=== PATIENT | female | born 1985 | race Two or more races ===

== ENCOUNTER 2016-10-10 | Emergency (ER) | payer MEDICAID | END 2016-10-11 03:18 | disposition home or self-care (01) ==

== ENCOUNTER 2016-10-14 | Emergency (ER) | payer MEDICAID | END 2016-10-14 16:22 | disposition home or self-care (01) ==

== ENCOUNTER 2017-01-24 15:20 | Emergency (ER) | payer MEDICAID | END 2017-01-24 16:09 | disposition home or self-care (01) | DX: G62.9 Polyneuropathy, unspecified (principal); M79.602 Pain in left arm; I10 Essential (primary) hypertension ==

== ENCOUNTER 2017-02-15 14:30 | Emergency (ER) | payer MEDICAID ==
[2017-02-15] MEDS ORDERED: NEOMYCIN/POLYMYX/DEXAMETH OPHTH DROPS 5 ML ONE (15:06)
[2017-02-15] MEDS ORDERED: NEOMYCIN/POLYMYX/DEXAMETH OPHTH OINT LEFTEYE STA (15:10)
[2017-02-15] MEDS ORDERED: NEOMYCIN/POLYMYX/DEXAMETH OPHTH DROPS 5 ML LEFTEYE SCH (17:00)
== END 2017-02-15 15:27 | disposition home or self-care (01) ==
DX: H00.015 Hordeolum externum left lower eyelid (principal); I10 Essential (primary) hypertension
CPT/HCPCS: 99283; A9270

== ENCOUNTER 2017-03-16 10:59 | Emergency (ER) | payer MEDICAID ==
[2017-03-16 11:04] VITALS: BP 128/91
[2017-03-16] MEDS ORDERED: MAG HYDROX/AL HYDROX/SIMETH 30 ML UDC PO STA (12:17)
[2017-03-16] MEDS ORDERED: LIDOCAINE VISCOUS 2% 15 ML UDC MM STA (12:17)
--- NOTE | 2017-03-16 12:20 | ED Physician Documentation ---
PD HPI ABD PAIN - Stated complaint Stated Complaint: LEFT SIDE PX - Chief complaint Chief Complaint: Abd Pain - History obtained from History obtained from: Patient - History of Present Illness Timing - onset: Yesterday (31-year-old woman with history of gastritis presents with left upper quadrant pain starting abruptly yesterday about an hour after starting diclofenac gel for chronic wrist and back pain. She is nauseous but has not vomited. She has had a subjective fever, but nothing measured. She also has diarrhea. She denies possibility of .) Review of Systems Constitutional: reports: Fever (subjective) Cardiac: denies: Chest pain / pressure, Palpitations Respiratory: denies: Dyspnea, Cough GI: reports: Abdominal Pain (nonradiating, left upper), Nausea, Vomiting, Diarrhea. 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 : None HEENT: None Psych: Depression, Anxiety Musculoskeletal: Other Derm: None - Past Surgical History Past Surgical History: Yes - Present Medications Home Medications: Ambulatory Orders Medication Instructions Recorded Confirmed Prazosin [Minipress] 1 tab PO DAILY 01/24/17 03/16/17 Diclofenac Sodium [Solaraze] 1 applic .ROUTE .FREQ 03/16/17 03/16/17 Omeprazole [PriLOSEC] 20 mg PO DAILY #14 capsule 03/16/17 traZODone [Desyrel] 1 tab PO DAILY 03/16/17 03/16/17 - Allergies Allergies/Adverse Reactions: Allergies Allergy/AdvReac Type Severity Reaction Status Date / Time aspirin Allergy Unknown Verified 03/16/17 11:04 - Social History Does the pt smoke?: No Smoking Status: Never smoker Does the pt drink ETOH?: No Does the pt have substance abuse?: No - Immunizations Immunizations are current?: Yes - POLST Patient has POLST: No PD ED PE NORMAL - Vitals Vital signs reviewed: Yes - General General: Alert and oriented X 3, No acute distress - Cardiac Cardiac: RRR, No murmur - Respiratory Respiratory: No respiratory distress, Clear bilaterally - Abdomen Abdomen: Normal bowel sounds, Soft, Non tender - Neuro Neuro: Alert and oriented X 3, Normal speech - Psych Psych: Normal mood, Normal affect Results - Vitals Vitals: Vital Signs - 24 hr 03/16/17 11:02 Temperature 36.0 C L Heart Rate 74 Respiratory 18 Rate Blood Pressure 128/91 H O2 Saturation 99 Oxygen O2 Source Room air - Labs Labs: Laboratory Tests 03/16/17 03/16/17 03/16/17 12:20 12:20 12:25 WBC 10.1 RBC 5.28 Hgb 14.8 Hct 42.5 MCV 80.5 L MCH 27.9 MCHC 34.7 RDW 12.9 Plt Count 276 MPV 8.2 Neut # 6.0 Lymph # 3.5 [place] # 0.6 Eos # 0.1 Baso # 0.0 Absolute Nucleated RBC 0.01 Nucleated RBCs 0.1 Sodium 137 Potassium 3.5 Chloride 99 L Carbon Dioxide 28 Anion Gap 10.0 BUN 5 L Creatinine 0.5 Estimated GFR (MDRD) 146 Glucose 271 H Calcium 9.8 Total Bilirubin 0.8 AST 45 H ALT 89 H Alkaline Phosphatase 71 Total Protein 7.9 Albumin 4.4 Globulin 3.5 Albumin/Globulin Ratio 1.3 Lipase 25 Urine Color YELLOW Urine Clarity CLEAR Urine pH 6.0 Ur Specific [place] 1.015 Urine Protein NEGATIVE Urine Glucose (UA) >=1000 H Urine Ketones TRACE Urine Occult Blood NEGATIVE Urine Nitrite NEGATIVE Urine Bilirubin NEGATIVE Urine Urobilinogen 0.2 (NORMAL) Ur Leukocyte Esterase NEGATIVE Ur Microscopic Review NOT INDICATED Urine Culture Comments NOT INDICATED Urine HCG, Qual NEGATIVE PD MEDICAL DECISION MAKING - ED course ED course: LUQ pain after using diclofenac, non radiating, time course seems awfully fast for gastritis (1hr after starting the NSAID) but did have relief with GI cocktail. Labs show chronic elevation of liver enzymes. Spoke with her physician Dr Aguilar by phone ([phone]), agrees with starting Prilosec and asked us not to give opiates from the emergency department. She will followup on lab abnormalities. Departure - Departure Disposition: 01 Home, Self Care Clinical Impression: Gastritis Qualifiers: Gastritis type: unspecified gastritis Chronicity: acute Gastritis bleeding: without bleeding Qualified Code(s): K29.00 - Acute gastritis without bleeding Condition: Good Record reviewed to determine appropriate education?: Yes Instructions: ED Gastritis Prescriptions: Omeprazole [PriLOSEC] 20 mg PO DAILY #14 capsule Comments: YOU DO HAVE CHRONICALLY (NOT RELATED TO NEW MED-ON OLD LABS) ELEVATED LIVER ENZYMES AND BLOOD SUGAR, DR AGUILAR IS AWARE AND WILL LOOK INTO IT AT FOLLOWUP. RETURN IF WORSE STOP DICLOFENAC. Your blood pressure was elevated today on check in to the emergency department. This does not mean that you have hypertension, it is a common phenomenon to check into the emergency department and have elevated blood pressure. I recommend that you see your primary care physician within the week to have it rechecked when you're feeling better.
[2017-03-16] MEDS ORDERED: MAG HYDROX/AL HYDROX/SIMETH 30 ML UDC ONE (12:27)
[2017-03-16] MEDS ORDERED: LIDOCAINE VISCOUS 2% 15 ML UDC MM ONE (12:27)
[2017-03-16 12:32] LABS: BILIRUBIN,URINE NEGATIVE (NEGATIVE)
[2017-03-16 12:34] LABS: HCG UR QUAL NEGATIVE; UA CHARGE (STRIP ONLY) YES; UR CULTURE IF IND NOT INDICATED
[2017-03-16 12:38] LABS: BASOPHILS % (AUTO) 0.4 %; EOSINOPHILS # (AUTO) 0.1 10^3/uL (0.0-0.7); EOSINOPHILS % (AUTO) 0.8 %; HCT - HEMATOCRIT 42.5 % (37.0-47.0); HGB - HEMOGLOBIN 14.8 g/dL (12.0-16.0); LYMPHOCYTES # (AUTO) 3.5 10^3/uL (1.5-3.5); LYMPHOCYTES % (AUTO) 34.4 %; MEAN CORPUSCULAR HEMOGLOBIN 27.9 pg (27.0-31.0); MEAN CORPUSCULAR HGB CONC 34.7 g/dL (32.0-36.0); MEAN CORPUSCULAR VOLUME 80.5 fL (81.0-99.0); MEAN PLATELET VOLUME 8.2 fL (7.9-10.8); MONOCYTES # (AUTO) 0.6 10^3/uL (0.0-1.0); MONOCYTES % (AUTO) 5.4 %; NUCLEATED RED BLOOD CELLS AUTO 0.1 /100WBC; RED BLOOD COUNT 5.28 10^6/uL (4.20-5.40); RED CELL DISTRIBUTION WIDTH 12.9 % (12.0-15.0); UNCORRECTED WHITE BLOOD COUNT 10.1 x10^3/uL; WHITE BLOOD COUNT 10.1 x10^3/uL (4.8-10.8)
[2017-03-16 12:51] LABS: ALBUMIN/GLOBULIN RATIO 1.3 (1.0-2.2); BILIRUBIN,TOTAL 0.8 mg/dL (0.2-1.0); CALCIUM 9.8 mg/dL (8.5-10.3); CREATININE 0.5 mg/dL (0.4-1.0); POTASSIUM 3.5 mmol/L (3.5-5.0); TOTAL PROTEIN 7.9 g/dL (6.7-8.2)
== END 2017-03-16 13:07 | disposition home or self-care (01) ==
LOC: ED 10:59
DX: K29.00 Acute gastritis without bleeding (principal); I10 Essential (primary) hypertension; J45.909 Unspecified asthma, uncomplicated; K21.9 Gastro-esophageal reflux disease without esophagitis
CPT/HCPCS: 36415; 80053; 81003; 81025; 83690; 85025; 99283; 99284; A9270; 81001; 87086

== ENCOUNTER 2017-03-29 10:00 | Emergency (ER) | payer MEDICAID ==
[2017-03-29] MEDS ORDERED: MAG HYDROX/AL HYDROX/SIMETH 30 ML UDC PO STA (12:15)
[2017-03-29] MEDS ORDERED: LIDOCAINE VISCOUS 2% 15 ML UDC MM STA (12:15)
[2017-03-29] MEDS ORDERED: LIDOCAINE VISCOUS 2% 15 ML UDC MM ONE (12:33)
[2017-03-29] MEDS ORDERED: MAG HYDROX/AL HYDROX/SIMETH 30 ML UDC ONE (12:33)
[2017-03-29] MEDS ORDERED: ACETAMINOPHEN 325 MG TABLET PO STA (12:45)
[2017-03-29] MEDS ORDERED: ACETAMINOPHEN 325 MG TABLET PO ONE (12:54)
== END 2017-03-29 13:39 | disposition home or self-care (01) ==
DX: K29.01 Acute gastritis with bleeding (principal); N30.00 Acute cystitis without hematuria; I10 Essential (primary) hypertension; K21.9 Gastro-esophageal reflux disease without esophagitis; J45.909 Unspecified asthma, uncomplicated
CPT/HCPCS: 81001; 81025; 85014; 85018; 99283; A9270

== ENCOUNTER 2017-05-11 07:57 | Emergency (ER) | payer MEDICAID ==
[2017-05-11 08:07] VITALS: BP 133/80
[2017-05-11] MEDS ORDERED: DEXAMETHASONE 10 MG/ML VIAL IM STA (08:38)
--- NOTE | 2017-05-11 08:41 | ED Physician Documentation ---
PD HPI HEENT - Stated complaint Stated Complaint: VOMITING BLOOD - Chief complaint Chief Complaint: Resp - History obtained from History obtained from: Patient - History of Present Illness Timing - onset: How many weeks ago (1) Timing - duration: Weeks (1) Timing - details: Gradual onset, Still present Location: Right ear, Left ear, Sinuses Associated symptoms: Congestion, Rhinorrhea, Cough Similar symptoms before: Diagnosis (sinusitis) Recently seen: Emergency Dept (last month for) - Additional information Additional information: 31-year-old female with a cough productive of sputum for the past week has developed blood-tinged sputum and she has coughed up a fair amount of this. She is not short of breath. She has developed some diarrhea over the past 72 hours. She complains of ear pain and sinus congestion and she has started to take an [id number] cough syrup without much relief. She has been taking some ibuprofen last dose 3 days ago. Review of Systems Constitutional: reports: Fatigue. denies: Fever Eyes: denies: Decreased vision Ears: reports: Ear pain Nose: reports: Rhinorrhea / runny nose, Congestion, Sinus pressure / pain Throat: denies: Sore throat Cardiac: denies: Chest pain / pressure, Palpitations Respiratory: reports: Cough. denies: Dyspnea GI: reports: Diarrhea. 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 : None HEENT: None Psych: Depression, Anxiety Musculoskeletal: Other Derm: None - Past Surgical History Past Surgical History: Yes - Present Medications Home Medications: Ambulatory Orders Medication Instructions Recorded Confirmed Prazosin [Minipress] 1 tab PO DAILY 01/24/17 05/11/17 traZODone [Desyrel] 1 tab PO DAILY 03/16/17 05/11/17 Omeprazole [PriLOSEC] 20 mg PO DAILY #14 capsule 03/29/17 05/11/17 Sucralfate 1 gm PO ACHS #40 tablet 03/29/17 05/11/17 Azithromycin [Zithromax] 250 mg PO DAILY #6 tablet 05/11/17 - Allergies Allergies/Adverse Reactions: Allergies Allergy/AdvReac Type Severity Reaction Status Date / Time aspirin Allergy Unknown Verified 05/11/17 08:07 - Social History Does the pt smoke?: No Smoking Status: Never smoker Does the pt drink ETOH?: No Does the pt have substance abuse?: No - Immunizations Immunizations are current?: Yes - POLST Patient has POLST: No PD ED PE NORMAL - Vitals Vital signs reviewed: Yes (Hypertensive) - General General: Alert and oriented X 3, Well developed/nourished - HEENT HEENT: Atraumatic, PERRL, EOMI, Other (Both TMs are mildly inflamed) - Neck Neck: Supple, no meningeal sign, No bony TTP - Cardiac Cardiac: RRR, No murmur - Respiratory Respiratory: No respiratory distress, Clear bilaterally - Abdomen Abdomen: Soft, Other (Mild left upper quadrant tenderness) - Back Back: No CVA TTP, No spinal TTP - Derm Derm: Normal color, Warm and dry, No rash - Extremities Extremities: No deformity, No edema - Neuro Neuro: Alert and oriented X 3, No motor deficit, No sensory deficit, Normal speech - Psych Psych: Normal mood, Normal affect Results - Vitals Vitals: Vital Signs - 24 hr 05/11/17 08:04 Temperature 36.6 C Heart Rate 85 Respiratory 16 Rate Blood Pressure 133/80 H O2 Saturation 100 Oxygen O2 Source Room air PD MEDICAL DECISION MAKING - ED course Complexity details: reviewed old records, considered differential, d/w patient ED course: 31-year-old homeless female who is a poor historian has developed a cough and congestion and is coughing up some blood-tinged sputum. On examination she has bilateral otitis and here in the emergency department she is administered dexamethasone 10 mg IM to avoid irritation of the GI system and we will place her on some antibiotic. Departure - Departure Disposition: 01 Home, Self Care Clinical Impression: Otitis media Qualifiers: Otitis media type: suppurative Laterality: bilateral Chronicity: acute Recurrence: not specified as recurrent Spontaneous tympanic membrane rupture: without spontaneous rupture Qualified Code(s): H66.003 - Acute suppurative otitis media without spontaneous rupture of ear drum, bilateral Condition: Stable Instructions: ED Otitis Media Acute Adult Follow-Up: [facility] [Provider Group] Prescriptions: Azithromycin [Zithromax] 250 mg PO DAILY #6 tablet
[2017-05-11] MEDS ORDERED: DEXAMETHASONE 10 MG/ML VIAL ONE (08:47)
== END 2017-05-11 08:53 | disposition home or self-care (01) ==
LOC: ED 07:57
DX: H66.003 Acute suppurative otitis media without spontaneous rupture of ear drum, bilateral (principal); I10 Essential (primary) hypertension
CPT/HCPCS: 96372; 99283

== ENCOUNTER 2017-07-06 22:10 | Emergency (ER) | payer MEDICAID ==
--- NOTE | 2017-07-06 22:24 | ED Physician Documentation ---
PD HPI UPPER EXT INJURY - Stated complaint Stated Complaint: LT FINGER INJ - History obtained from History obtained from: Patient - History of Present Illness Location: Other (She smashed her left ring finger on a ladder about a week ago and now has a recurrent paronychia that she is drained a few times with a needle but it keeps recurring.) Review of Systems Constitutional: reports: Reviewed and negative Throat: reports: Reviewed and negative Cardiac: reports: Reviewed and negative PD PAST MEDICAL HISTORY - Past Medical History Cardiovascular: Hypertension Respiratory: Asthma Neuro: None Endocrine/Autoimmune: None 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 : None HEENT: None Psych: Depression, Anxiety Musculoskeletal: Other Derm: None - Past Surgical History Past Surgical History: Yes - Present Medications Home Medications: Ambulatory Orders Medication Instructions Recorded Confirmed Prazosin [Minipress] 1 tab PO DAILY 01/24/17 05/11/17 traZODone [Desyrel] 1 tab PO DAILY 03/16/17 05/11/17 Omeprazole [PriLOSEC] 20 mg PO DAILY #14 capsule 03/29/17 05/11/17 Sucralfate 1 gm PO ACHS #40 tablet 03/29/17 05/11/17 Azithromycin [Zithromax] 250 mg PO DAILY #6 tablet 05/11/17 Amox/Clav 875/125 [Augmentin] 1 each PO Q12H #14 tablet 07/06/17 - Allergies Allergies/Adverse Reactions: Allergies Allergy/AdvReac Type Severity Reaction Status Date / Time aspirin Allergy Unknown Verified 05/11/17 08:07 - Social History Does the pt smoke?: No Smoking Status: Never smoker Does the pt drink ETOH?: No Does the pt have substance abuse?: No - Immunizations Immunizations are current?: Yes - POLST Patient has POLST: No PD ED PE NORMAL - Vitals Vital signs reviewed: Yes - General General: Alert and oriented X 3, No acute distress - Extremities Extremities: Other (No tenderness of the pulp of the left ring finger but she does have a circumferential paronychia.) - Neuro Neuro: Alert and oriented X 3, Normal speech Results - Vitals Vitals: Vital Signs - 24 hr 07/06/17 22:24 Temperature 36.7 C Heart Rate 100 Respiratory 18 Rate Blood Pressure 136/94 H O2 Saturation 99 Oxygen O2 Source Room air Procedures - General procedure General procedure: After informed verbal consent and a digital block with buffered lidocaine the paronychia was incised over the nail plate with a scalpel and copious pus returned. Departure - Departure Disposition: 01 Home, Self Care Clinical Impression: Paronychia of finger of left hand Condition: Good Record reviewed to determine appropriate education?: Yes Instructions: ED Fingernail Infec Prescriptions: Amox/Clav 875/125 [Augmentin] 1 each PO Q12H #14 tablet Comments: You can wash it briefly with soap and water and keep it covered with a Band- Aid. Recheck with your physician in 1 week. Your blood pressure was elevated today on check into the emergency department. This does not mean that you have hypertension, it is a common phenomenon to come to the emergency department and have elevated blood pressure. I recommend that she see your primary care physician within the week to have it rechecked when you are feeling better.
[2017-07-06 22:28] VITALS: BP 136/94
[2017-07-06] MEDS ORDERED: AMOX/CLAV 875 MG/125 MG TABLET PO STA (22:28)
[2017-07-06] MEDS ORDERED: BUFFERED LIDOCAINE 10 ML SYRINGE ONE (22:29)
[2017-07-06] MEDS ORDERED: AMOX/CLAV 875 MG/125 MG TABLET PO ONE (22:38)
[2017-07-06] MEDS ORDERED: HYDROcod/ACET 5/325 Prepack 6 PO STA (22:59)
[2017-07-06] MEDS ORDERED: HYDROcod/ACET 5/325 Prepack 6 PO ONE (23:04)
== END 2017-07-06 23:08 | disposition home or self-care (01) ==
LOC: ED 22:10
DX: S67.195A Crushing injury of left ring finger, initial encounter (principal); L03.012 Cellulitis of left finger; W23.1XXA Caught, crushed, jammed, or pinched between stationary objects, initial encounter; I10 Essential (primary) hypertension; J45.909 Unspecified asthma, uncomplicated; K21.9 Gastro-esophageal reflux disease without esophagitis
CPT/HCPCS: 10060; 99283; A9270

== ENCOUNTER 2017-08-27 07:54 | Emergency (ER) | payer MEDICAID ==
[2017-08-27 08:01] VITALS: BP 125/85
[2017-08-27] MEDS ORDERED: DEXAMETHASONE 10 MG/ML VIAL PO STA (08:56)
[2017-08-27] MEDS ORDERED: LIDOCAINE PATCH 5% TOP STA (08:56)
--- NOTE | 2017-08-27 08:59 | ED Physician Documentation ---
History of Present Illness - Stated complaint Stated Complaint: NECK PX - Chief complaint Chief Complaint: General - Additonal information Additional information: hx from pt 32 f [facility]th [facility] ER visit in 2 years states knocked over at a medical facility 2 weeks ago no head injury no nck pain initially states was checked by staff at the time now has neck pain jarek and midline and pain down R arm no weakness or numbness no leg sx denies preg has tried ibuprofen Review of Systems : denies: Now EGA Musculoskeletal: reports: Neck pain, Extremity pain Neurologic: denies: Focal weakness, Numbness PD PAST MEDICAL HISTORY - Past Medical History Cardiovascular: Hypertension Respiratory: Asthma Neuro: None Endocrine/Autoimmune: None 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 HEENT: None Psych: Depression, Anxiety Musculoskeletal: Other Derm: None - Past Surgical History Past Surgical History: Yes - Present Medications Home Medications: Ambulatory Orders Medication Instructions Recorded Confirmed Prazosin [Minipress] 1 tab PO DAILY 01/24/17 05/11/17 traZODone [Desyrel] 1 tab PO DAILY 03/16/17 05/11/17 Omeprazole [PriLOSEC] 20 mg PO DAILY #14 capsule 03/29/17 05/11/17 Sucralfate 1 gm PO ACHS #40 tablet 03/29/17 05/11/17 Azithromycin [Zithromax] 250 mg PO DAILY #6 tablet 05/11/17 Amox/Clav 875/125 [Augmentin] 1 each PO Q12H #14 tablet 07/06/17 Cyclobenzaprine [Flexeril] 10 mg PO TID PRN #20 tablet 08/27/17 Lidocaine Patch 5% [Lidoderm Patch] 1 each TOP DAILY PRN #10 patch 08/27/17 predniSONE [Deltasone] 20 mg PO [id number] #21 tab 08/27/17 - Allergies Allergies/Adverse Reactions: Allergies Allergy/AdvReac Type Severity Reaction Status Date / Time aspirin Allergy Unknown Verified 05/11/17 08:07 lavender (Lavandula Allergy Hives Verified 08/27/17 08:01 angustifolia) - Social History Does the pt smoke?: No Smoking Status: Never smoker Does the pt drink ETOH?: No Does the pt have substance abuse?: No - Immunizations Immunizations are current?: Yes - POLST Patient has POLST: No PD ED PE NORMAL - Vitals Vital signs reviewed: Yes - HEENT HEENT: Atraumatic - Neck Neck: Other (diffuse midline and jarek soft tissue TTP limited ROM) - Cardiac Cardiac: RRR - Respiratory Respiratory: No respiratory distress, Clear bilaterally - Abdomen Abdomen: Non tender - Neuro Neuro: Alert and oriented X 3, No motor deficit, No sensory deficit, Other ( 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, pain with ROM shoulder and elbow, + cap refill) Results - Vitals Vitals: Vital Signs - 24 hr 08/27/17 07:58 Temperature 36.2 C L Heart Rate 79 Respiratory 16 Rate Blood Pressure 125/85 H O2 Saturation 100 Oxygen O2 Source Room air - Rads (name of study) Cspine Radiology: See rad report (neg) Departure - Departure Disposition: 01 Home, Self Care Clinical Impression: Cervical radiculopathy Neck sprain Qualifiers: Encounter type: initial encounter Qualified Code(s): S13.9XXA - Sprain of joints and ligaments of unspecified parts of neck, initial encounter Condition: Good Instructions: ED Cervical Radiculopathy, ED Neck Back Pain General Prescriptions: Cyclobenzaprine [Flexeril] 10 mg PO TID PRN #20 tablet PRN Reason: Spasms Lidocaine Patch 5% [Lidoderm Patch] 1 each TOP DAILY PRN #10 patch PRN Reason: Pain predniSONE [Deltasone] 20 mg PO [id number] #21 tab Comments: The xray was fine The pain seems to be from the muscles in your neck and perhaps a poinched nerve causing the arm pain I have prescribed medications to helpo please follow up with your PMD if not better in a week
[2017-08-27] MEDS ORDERED: DEXAMETHASONE 10 MG/ML VIAL ONE (09:24)
[2017-08-27] MEDS ORDERED: LIDOCAINE PATCH 5% TOP ONE (09:24)
--- NOTE | 2017-08-27 09:48 | XRAY Preliminary Report ---
Exam: XR CERVICAL SPINE 2 VIEW IMPRESSION: No cervical spine fracture or listhesis. [facility] SITE ID: [id number]
--- NOTE | 2017-08-27 09:51 | XRAY Report ---
EXAM: CERVICAL SPINE RADIOGRAPHY EXAM DATE: 08/27/2017 09:24 AM. CLINICAL HISTORY: Fall 2 week ago, continued neck pain. COMPARISONS: None. TECHNIQUE: 3 views. FINDINGS: Alignment: Normal. Bones: The cervical vertebral bodies and posterior elements are well visualized from the skull base t hrough C7-T1. No fractures or bone lesions. Disks: Normal. Disk heights are maintained. Facets: No degenerative disease. Soft Tissues: Normal. No prevertebral soft tissue swelling. The visualized lung apices are clear. IMPRESSION: No cervical spine fracture or listhesis. [facility] Referring Provider Line: [phone] SITE ID: [id number]
== END 2017-08-27 10:06 | disposition home or self-care (01) ==
LOC: ED 07:54
DX: S13.9XXA Sprain of joints and ligaments of unspecified parts of neck, initial encounter (principal); W18.39XA Other fall on same level, initial encounter; Y92.89 Other specified places as the place of occurrence of the external cause; M54.12 Radiculopathy, cervical region; I10 Essential (primary) hypertension; J45.909 Unspecified asthma, uncomplicated
CPT/HCPCS: 72040; 99283; A9270

== ENCOUNTER 2017-09-16 18:38 | Emergency (ER) | payer MEDICAID ==
--- NOTE | 2017-09-16 19:01 | ED Physician Documentation ---
PD HPI UPPER EXT INJURY - Stated complaint Stated Complaint: RT HAND IS BLUE & HAS PX - Chief complaint Chief Complaint: Ext Problem - History obtained from History obtained from: Patient - History of Present Illness Location: Right, Hand (she has had pain in right shoulder for 1-2 months after fall injury. Some neck pain as well. She is noting her right hand turn blue and feel cold intermittently the past few days. Notes it to lasta bout 20 minutes then improves. 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 : None HEENT: None Psych: Depression, Anxiety Musculoskeletal: Other Derm: None - Past Surgical History Past Surgical History: Yes - Present Medications Home Medications: Ambulatory Orders Medication Instructions Recorded Confirmed Prazosin [Minipress] 1 tab PO DAILY 01/24/17 09/16/17 traZODone [Desyrel] 1 tab PO DAILY 03/16/17 09/16/17 Cyclobenzaprine [Flexeril] 10 mg PO TID PRN #20 tablet 08/27/17 09/16/17 Dexamethasone [Decadron] 4 mg PO DAILY #5 tablet 09/16/17 HYDROcod/ACETAM 5/325 [[place] 5/325] 1 tab PO Q6H PRN #15 tablet 09/16/17 Methocarbamol [Robaxin] 500 mg PO Q6H PRN #25 tablet 09/16/17 Naproxen 375 mg PO BID #20 tablet 09/16/17 - Allergies Allergies/Adverse Reactions: Allergies Allergy/AdvReac Type Severity Reaction Status Date / Time aspirin Allergy Unknown Verified 09/16/17 18:49 lavender (Lavandula Allergy Hives Verified 09/16/17 18:49 angustifolia) - Social History Does the pt smoke?: No Smoking Status: Never smoker Does the pt drink ETOH?: No Does the pt have substance abuse?: No - Immunizations Immunizations are current?: Yes - POLST Patient has POLST: No PD ED PE NORMAL - Vitals Vital signs reviewed: Yes - General General: Alert and oriented X 3, No acute distress, Well developed/nourished - Neck Neck: Supple, no meningeal sign, No bony TTP, No adenopathy, Other (some tenderness right lateral neck muscles and suprascapular area. Tender at lateral shoulder. No rash. Right hand with normal color and cap refill. Good pulses at wrist. ) - Cardiac Cardiac: RRR, No murmur - Derm Derm: Normal color, Warm and dry, No rash - Neuro Neuro: Alert and oriented X 3, No motor deficit, No sensory deficit, Normal speech Results - Vitals Vitals: Vital Signs - 24 hr 09/16/17 09/16/17 18:45 20:35 Temperature 36.7 C Heart Rate 92 78 Respiratory 16 18 Rate Blood Pressure 129/89 H 132/94 H O2 Saturation 99 100 Oxygen O2 Source Room air - Rads (name of study) arterial U/S Radiology: Prelim report reviewed (no occlusions) PD MEDICAL DECISION MAKING - ED course Complexity details: considered differential, d/w patient Departure - Departure Disposition: 01 Home, Self Care Clinical Impression: Shoulder pain Qualifiers: Chronicity: acute Laterality: right Qualified Code(s): M25.511 - Pain in right shoulder Raynaud phenomenon Qualifiers: Raynaud?s-associated gangrene presence: without gangrene Qualified Code(s): I73.00 - Raynaud's syndrome without gangrene Condition: Stable Record reviewed to determine appropriate education?: Yes Instructions: ED Sprain Shoulder Follow-Up: Sher Gillis MD [Provider Admit Priv/Credential] - Prescriptions: Dexamethasone [Decadron] 4 mg PO DAILY #5 tablet HYDROcod/ACETAM 5/325 [[place] 5/325] 1 tab PO Q6H PRN #15 tablet PRN Reason: Pain Methocarbamol [Robaxin] 500 mg PO Q6H PRN #25 tablet PRN Reason: Spasms Naproxen 375 mg PO BID #20 tablet Comments: Sling for the shoulder with gentle range of motion several times a day. Use naproxen twice daily for the next week or so for inflammation and pain. Dexamethasone is a different type of anti-inflammatory to take daily for the next 5 days as well. For muscle spasms or stiffness use methocarbamol. For worse pain add Tylenol or hydrocodone if needed. Follow-up with orthopedics in about a week, call for an appointment. Recheck if worsening. Discharge Date/Time: 09/16/17 21:36
[2017-09-16] MEDS ORDERED: IBUPROFEN 600 MG TABLET PO STA (19:18)
--- NOTE | 2017-09-16 19:50 | XRAY Preliminary Report ---
Exam: XR SHOULDER 3 VIEW RT IMPRESSION: Normal shoulder radiography. [facility] SITE ID: [id number]
--- NOTE | 2017-09-16 19:53 | XRAY Report ---
EXAM: RIGHT SHOULDER RADIOGRAPHY EXAM DATE: 09/16/2017 07:39 PM. CLINICAL HISTORY: Injury with right shoulder pain. COMPARISON: None. TECHNIQUE: 3 views. FINDINGS: Bones: Normal. No fracture or bone lesion. Joints: The glenohumeral and acromioclavicular joints are normal. Soft tissues: The visualized hemithorax is unremarkable. No soft tissue swelling. IMPRESSION: Normal shoulder radiography. [facility] Referring Provider Line: [phone] SITE ID: [id number]
[2017-09-16 20:36] VITALS: BP 132/94
--- NOTE | 2017-09-16 20:54 | Ultrasound Preliminary Report ---
Exam: US DUPLEX UPR EXT ARTERIAL RT IMPRESSION: No sign of stenosis or occlusion. [facility] SITE ID: [id number]
--- NOTE | 2017-09-16 21:06 | Ultrasound Report ---
EXAM: RIGHT UPPER EXTREMITY ARTERIAL DOPPLER ULTRASOUND EXAM DATE: 09/16/2017 08:41 PM. CLINICAL HISTORY: Right hand intermittently blue after fall/injury. COMPARISON: None. TECHNIQUE: Real-time sonographic vascular imaging was performed by the turnstile collector, utilizing color-f low, Doppler flow, and spectral analysis. Multiple bottling equipment sales representative static images were saved for review . FINDINGS: Right Upper Extremity Velocities: Subclavian: Proximal 98 cm/sec, triphasic waveform. Subclavian: Distal 77 cm/sec, triphasic waveform Axillary: Proximal 86.3 cm/sec, Biphasic waveform. Brachial: Proximal 62.7 cm/sec, biphasic waveform. Brachial: Distal 82 cm/sec, biphasic waveform. Radial artery: Proximal 43.4 cm/sec, biphasic waveform. Ulnar artery: Proximal 81 cm/sec, triphasic waveform. IMPRESSION: No sign of stenosis or occlusion. [facility] Referring Provider Line: [phone] SITE ID: [id number]
[2017-09-16] MEDS ORDERED: HYDROcod/ACETAM 5/325 MG TABLET PO STA (21:23)
[2017-09-16] MEDS ORDERED: DEXAMETHASONE 10 MG/ML VIAL PO STA (21:23)
[2017-09-16] MEDS ORDERED: CHERRY SYRUP 10 ML UDC PO ONE (21:33)
== END 2017-09-16 21:36 | disposition home or self-care (01) ==
LOC: ED 18:38
DX: M25.511 Pain in right shoulder (principal); I73.00 Raynaud's syndrome without gangrene; I10 Essential (primary) hypertension; J45.909 Unspecified asthma, uncomplicated; K21.9 Gastro-esophageal reflux disease without esophagitis
CPT/HCPCS: 73030; 93931; 99283; A9270

== ENCOUNTER 2018-01-20 07:49 | Emergency (ER) | payer MEDICAID ==
[2018-01-20 07:56] VITALS: BP 128/85
--- NOTE | 2018-01-20 08:16 | ED Physician Documentation ---
PD HPI URI - Stated complaint Stated Complaint: CONGESTION - Chief complaint Chief Complaint: Resp - History obtained from History obtained from: Patient - History of Present Illness Timing - onset: How many days ago (few) Timing duration: Days (few) Timing details: Abrupt onset, Still present, Waxing and waning Associated symptoms: Fever, Nasal congestion, Sore throat, Dry cough. No: NVD, Bilateral edema Contributing factors: No: Sick contact, Travel, Immunocompromised Similar symptoms before: Has not had sx before Recently seen: Not recently seen Review of Systems Constitutional: reports: Fever, Chills, Myalgias, Fatigue Nose: reports: Rhinorrhea / runny nose, Congestion Throat: reports: Sore throat Cardiac: reports: Chest pain / pressure (with coughing). denies: Palpitations Respiratory: reports: Cough. 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 : None HEENT: None Psych: Depression, Anxiety Musculoskeletal: Other Derm: None - Past Surgical History Past Surgical History: Yes Ortho: Carpal Tunnel surgery - Present Medications Home Medications: Ambulatory Orders Medication Instructions Recorded Confirmed Prazosin [Minipress] 1 tab PO DAILY 01/24/17 09/16/17 traZODone [Desyrel] 1 tab PO DAILY 03/16/17 09/16/17 HYDROcod/ACETAM 5/325 [[place] 5/325] 1 tab PO Q6H PRN #15 tablet 09/16/17 Benzonatate [Tessalon] 100 mg PO TID PRN #25 capsule 01/20/18 Cetirizine [ZyrTEC] 10 mg PO DAILY #20 tablet 01/20/18 Dexamethasone [Decadron] 4 mg PO DAILY #5 tablet 01/20/18 guaiFENesin/CODEINE [Robitussin AC] 10 ml PO Q6H PRN #240 ml 01/20/18 - Allergies Allergies/Adverse Reactions: Allergies Allergy/AdvReac Type Severity Reaction Status Date / Time aspirin Allergy Unknown Verified 01/20/18 07:56 lavender (Lavandula Allergy Hives Verified 01/20/18 07:56 angustifolia) - Social History Does the pt smoke?: No Smoking Status: Never smoker Does the pt drink ETOH?: No Does the pt have substance abuse?: No - Immunizations Immunizations are current?: Yes - POLST Patient has POLST: No PD ED PE NORMAL - Vitals Vital signs reviewed: Yes - General General: Alert and oriented X 3, No acute distress, Well developed/nourished - HEENT HEENT: Ears normal, Moist mucous membranes, Pharynx benign - Neck Neck: Supple, no meningeal sign, No adenopathy - Cardiac Cardiac: RRR, No murmur - Respiratory Respiratory: Clear bilaterally - Back Back: No CVA TTP - Derm Derm: Normal color, Warm and dry, No rash - Extremities Extremities: No tenderness to palpate, Normal ROM s pain, No edema, No calf tenderness / cord - Neuro Neuro: Alert and oriented X 3, No motor deficit, Normal speech Results - Vitals Vitals: Vital Signs - 24 hr 01/20/18 07:52 Temperature 36.5 C Heart Rate 86 Respiratory 18 Rate Blood Pressure 128/85 H O2 Saturation 100 Oxygen O2 Source Room air PD MEDICAL DECISION MAKING - ED course Complexity details: considered differential (seems like viral URI), d/w patient Departure - Departure Disposition: 01 Home, Self Care Clinical Impression: Upper respiratory infection Qualifiers: URI type: unspecified URI Qualified Code(s): J06.9 - Acute upper respiratory infection, unspecified Condition: Stable Record reviewed to determine appropriate education?: Yes Instructions: ED Upper Resp Infec No Abx Tx Prescriptions: Benzonatate [Tessalon] 100 mg PO TID PRN #25 capsule PRN Reason: Cough Cetirizine [ZyrTEC] 10 mg PO DAILY #20 tablet Dexamethasone [Decadron] 4 mg PO DAILY #5 tablet guaiFENesin/CODEINE [Robitussin AC] 10 ml PO Q6H PRN #240 ml PRN Reason: Cough Comments: Drink lots of fluids. Tylenol or ibuprofen if needed for pains and fevers. Use the Decadron and cetirizine for inflammation and congestion daily as directed. Add Tessalon if needed for cough and Robitussin-AC cough medicine if needed for worse cough. Recheck if not improving over the next few days. These are typically viral infections and antibiotics will not really help. Should improve however over the next several days though the cough itself may persist to some degree for a couple more weeks. Discharge Date/Time: 01/20/18 08:51
[2018-01-20] MEDS ORDERED: BENZONATATE 100 MG CAPSULE PO STA (08:27)
[2018-01-20] MEDS ORDERED: CETIRIZINE 10 MG TABLET PO STA (08:27)
[2018-01-20] MEDS ORDERED: DEXAMETHASONE 10 MG/ML VIAL PO STA (08:27)
[2018-01-20] MEDS ORDERED: guaiFENesin/CODEINE 5 ML UDC PO STA (08:27)
== END 2018-01-20 08:51 | disposition home or self-care (01) ==
LOC: ED 07:49
DX: J06.9 Acute upper respiratory infection, unspecified (principal); I10 Essential (primary) hypertension; J45.909 Unspecified asthma, uncomplicated; K21.9 Gastro-esophageal reflux disease without esophagitis
CPT/HCPCS: 99283; A9270

== ENCOUNTER 2018-03-01 08:00 | Outpatient (CLI) | payer MEDICAID ==
[2018-03-01 19:10] LABS: BASOPHILS # (AUTO) 0.1 10^3/uL (0.0-0.1); BASOPHILS % (AUTO) 0.6 %; EOSINOPHILS # (AUTO) 0.1 10^3/uL (0.0-0.7); EOSINOPHILS % (AUTO) 0.7 %; HGB - HEMOGLOBIN 15.2 g/dL (12.0-16.0); LYMPHOCYTES # (AUTO) 3.3 10^3/uL (1.5-3.5); LYMPHOCYTES % (AUTO) 34.8 %; MEAN CORPUSCULAR HEMOGLOBIN 28.4 pg (27.0-31.0); MEAN CORPUSCULAR VOLUME 83.7 fL (81.0-99.0); MONOCYTES # (AUTO) 0.6 10^3/uL (0.0-1.0); MONOCYTES % (AUTO) 6.6 %; NEUTROPHILS # (AUTO) 5.4 10^3/uL (1.5-6.6); NEUTROPHILS % (AUTO) 57.3 %; PLT - PLATELET COUNT 296 10^3/uL (130-450); RED BLOOD COUNT 5.35 10^6/uL (4.20-5.40); WHITE BLOOD COUNT 9.4 x10^3/uL (4.8-10.8)
[2018-03-01 19:20] LABS: ALBUMIN 4.3 g/dL (3.2-5.5); ALBUMIN/GLOBULIN RATIO 1.2 (1.0-2.2); BILIRUBIN,TOTAL 0.5 mg/dL (0.2-1.0); CALCIUM 9.2 mg/dL (8.5-10.3); CREATININE 0.4 mg/dL (0.4-1.0); TOTAL PROTEIN 7.9 g/dL (6.7-8.2)
[2018-03-01 19:28] LABS: THYROID STIMULATING HORMONE 0.99 uIU/mL (0.34-5.60)
[2018-03-01 19:39] LABS: FOLATE 17.73 ng/mL (5.90 - >24.8)
== END 2018-03-01 08:01 | disposition home or self-care (01) ==
LOC: LAB.N 08:00
PROVIDERS: ATTEND Nurse Practitioner
DX: R53.83 Other fatigue (principal); E55.9 Vitamin D deficiency, unspecified
CPT/HCPCS: 36415; 80053; 82306; 82607; 82746; 84443; 85025

== ENCOUNTER 2018-03-01 14:25 | Outpatient (CLI) | payer MEDICAID ==
--- NOTE | 2018-03-01 18:08 | XRAY Report ---
LUMBAR SPINE, THREE VIEWS: 03/01/2018 HISTORY: Back pain. COMPARISON: 10/29/2015 FINDINGS: Bilateral spondylolysis with 1 cm of spondylolisthesis of L5 on S1. Remaining vertebral bodies normal in height and alignment. Mild progressive L5-S1 and L4-5 disk space narrowing since 2016. Remaining disk spaces well maintained. No significant facet joint arthropathy. IMPRESSION: STABLE 1 CM ANTEROLISTHESIS L5 ON S1 DUE TO PARS INTERARTICULARIS DEFECTS OF L5. SLIGHT PROGRESSIVE L4-5 AND L5-S1 DISK SPACE NARROWING COMPARED WITH 2016. TD: 03/01/2018 16:24
--- NOTE | 2018-03-01 18:09 | XRAY Report ---
CERVICAL SPINE: 03/01/2018 HISTORY: Neck pain. COMPARISON: 08/27/2017 FINDINGS: There is minimal anterolisthesis C3 on C4 and C4 on C5, similar to previous. Vertebral bodies otherwise unremarkable in height and alignment. Disk space heights are grossly well maintained. No significant facet joint arthropathy. C1-2 alignment appears anatomic. IMPRESSION: STABLE CERVICAL SPINE PLAIN FILMS COMPARED WITH 08/27/2017. MINIMAL ANTEROLISTHESIS C3 ON C4 AND C4 ON C5. OTHERWISE, UNREMARKABLE. TD: 03/01/2018 16:26
== END 2018-03-01 14:26 | disposition home or self-care (01) ==
LOC: DI.N 14:25
PROVIDERS: ATTEND Nurse Practitioner
DX: M43.07 Spondylolysis, lumbosacral region (principal); M43.17 Spondylolisthesis, lumbosacral region; R53.83 Other fatigue; E55.9 Vitamin D deficiency, unspecified
CPT/HCPCS: 36415; 72040; 72100; 80053; 82306; 82607; 82746; 84443; 85025

== ENCOUNTER 2018-04-01 09:42 | Outpatient (CLI) | payer MEDICAID ==
--- NOTE | 2018-04-01 10:01 | XRAY Report ---
Procedure Date: 04/01/2018 Accession Number: [id number] / [id number] Procedure: XRN - Wrist 3 View LT CPT Code: FULL RESULT: EXAM: Wrist 3 View LT DATE: 04/01/2018 9:55 AM CLINICAL HISTORY: WRIST PAIN COMPARISON: None. TECHNIQUE: 3 views. FINDINGS: Bones: Normal. No fractures or bone lesions. Joints: Normal. No subluxations. Soft Tissues: Normal. No soft tissue swelling. IMPRESSION: Normal wrist radiography. [facility]
== END 2018-04-01 09:43 | disposition home or self-care (01) ==
LOC: DI.N 09:42
PROVIDERS: ATTEND Nurse Practitioner
DX: M25.532 Pain in left wrist (principal)

== ENCOUNTER 2022-04-03 09:51 | Emergency (ER) | payer MEDICAID, MEDICARE ==
--- NOTE | 2022-04-03 11:34 | XRAY Report ---
PROCEDURE: Shoulder 3 View LT INDICATIONS: pain, decreased ROM TECHNIQUE: 3 views of the shoulder were acquired. COMPARISON: None. FINDINGS: Bones: No fractures or dislocations. No suspicious bony lesions. Visualized ribs appear intact. Soft tissues: No suspicious soft tissue calcifications. IMPRESSION: Unremarkable exam. Reviewed by: Kate Cody MD on 04/03/2022 11:33 AM PDT Approved by: Kate Cody MD on 04/03/2022 11:33 AM PDT Station ID: [id number]
--- NOTE | 2022-04-03 13:05 | ED Physician Documentation ---
PD HPI UPPER EXT INJURY - Stated complaint Stated Complaint: L SHOULDER - Chief complaint Chief Complaint: Ext Problem - History obtained from History obtained from: Patient - Additonal information Additional information: 5 days ago at her mother's house she fell and her arm pulled she was trying to break her fall. Since then has had severe shoulder pain. No history of shoulder problems. 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 : None HEENT: None Psych: Depression, Anxiety Musculoskeletal: Other Derm: None - Past Surgical History Past Surgical History: Yes Ortho: Carpal Tunnel surgery - Present Medications Home Medications: Ambulatory Orders Medication Instructions Recorded Confirmed HYDROcod/ACETAM 5/325 [[place] 5/325] 1 - 2 tab PO Q6H PRN #15 tablet 04/03/22 Insulin Detemir [Levemir] 10 unit SQ HS 04/03/22 04/03/22 glipiZIDE [Glipizide] 10 mg PO BID 04/03/22 04/03/22 metFORMIN [Glucophage] 1,000 mg PO BID 04/03/22 04/03/22 - Allergies Allergies/Adverse Reactions: Allergies Allergy/AdvReac Type Severity Reaction Status Date / Time aspirin Allergy Unknown Verified 04/03/22 10:30 lavender (Lavandula Allergy Hives Verified 04/03/22 10:30 angustifolia) - Social History Does the pt smoke?: No Smoking Status: Never smoker Does the pt drink ETOH?: No Does the pt have substance abuse?: No - Immunizations Immunizations are current?: Yes - POLST Patient has POLST: No PD ED PE NORMAL - Vitals Vital signs reviewed: Yes - General General: Alert and oriented X 3, No acute distress - Extremities Extremities: Other (Glenohumeral joint is nontender, she is unable to range it though. I am unable to range it passively consistent with rotator cuff injury. No AC joint tenderness.) - Neuro Neuro: Alert and oriented X 3, Normal speech Results - Vitals Vitals: Vital Signs - 24 hr 04/03/22 04/03/22 10:20 13:19 Temperature 36.3 C L 36.6 C Heart Rate 84 80 Respiratory 16 16 Rate Blood Pressure 132/94 H 132/78 H O2 Saturation 98 98 Oxygen O2 Source Room air - Rads (name of study) Three-view x-ray left shoulder is unremarkable Radiology: EMP read contemporaneously PD MEDICAL DECISION MAKING - ED course ED course: This seems like a rotator cuff injury from catching her fall. X-rays were negative. I recommended against a sling but she really wanted 1 for comfort so we discussed minimization of use and exercises to do as well as follow-up. Departure - Departure Disposition: 01 Home, Self Care Clinical Impression: Rotator cuff arthropathy of left shoulder Condition: Good Record reviewed to determine appropriate education?: Yes Instructions: ED Torn Rotator Cuff Follow-Up: Orthopedic Care [Provider Group] Prescriptions: HYDROcod/ACETAM 5/325 [[place] 5/325] 1 - 2 tab PO Q6H PRN #15 tablet PRN Reason: Pain Comments: I sent your prescription electronically to [facility] in [place]. As discussed, it seems like a rotator cuff injury. Use the sling as little as possible and do the range of motion exercises as shown to maintain range of motion in the shoulder joint. Follow-up with the orthopedic office, call for the next available appointment. Return for new or worsening symptoms. I am prescribing a short course of narcotic pain medication for you. These are potentially dangerous and addictive medications that should be used carefully. These medications may constipate you. Take an cjyt-owc-uphlhad stool softener (docusate) twice daily with plenty of water while taking these medications. If you go 24 hours without a bowel movement, take qsik-gxo-kxygbky miralax, per package instructions. Do not drink or drive while taking these medications. If you received narcotic or sedating medications while in the emergency department, do not drive for 24 hours. Store this medication in a safe, secure place and out of reach of children. It is a violation of federal law to give or sell this medication to another person or to use in a manner other than prescribed. The ED will not refill narcotic prescriptions, including prescriptions lost or stolen. To dispose of unwanted medications: 1. [facility] [address] in [place] has a medication drop box. They accept prescription medications (in pill form) Wednesday through Wednesday 9:00 a.m. to 5:00 p.m. 2. The [facility] accepts prescription medications (in pill form only) for disposal year round. Call for more informa tion. 3. Contact the [facility] for the next [facility] sponsored prescription drug collection event. , [phone], or [phone]; Note that many narcotic pain relievers also contain Tylenol/acetaminophen. Please ensure that your total dose of acetaminophen from all sources does not exceed 3 g (3000 mg) per day. Discharge Date/Time: 04/03/22 13:20
[2022-04-03 13:20] VITALS: BP 132/78
== END 2022-04-03 13:20 | disposition home or self-care (01) ==
LOC: ED 09:51
DX: S46.002A Unspecified injury of muscle(s) and tendon(s) of the rotator cuff of left shoulder, initial encounter (principal); W19.XXXA Unspecified fall, initial encounter; Y92.009 Unspecified place in unspecified non-institutional (private) residence as the place of occurrence of the external cause
CPT/HCPCS: 99282; 99283

== ENCOUNTER 2022-12-16 10:52 | Outpatient (CLI) | payer MEDICARE ==
[2022-12-16 11:26] LABS: BUN - BLOOD UREA NITROGEN 11 mg/dL (6-20); CALCIUM 9.1 mg/dL (8.5-10.3); CARBON DIOXIDE - CO2 24 mmol/L (21-32); CHLORIDE 106 mmol/L (101-111); CHOL/HDL RATIO 2.6 (<4.4); CHOLESTEROL 148 mg/dL; CREATININE 0.6 mg/dL (0.4-1.0); GFR - MDRD 114 (>89); GLUCOSE 328 mg/dL (70-100); HDL CHOLESTEROL 56 mg/dL; LDL CHOLESTEROL,CALCULATED 76 mg/dL; LDL/HDL RATIO 1.4 (<4.4); POTASSIUM 4.2 mmol/L (3.5-5.0); SODIUM 137 mmol/L (135-145); TRIGLYCERIDES 79 mg/dL; VLDL CHOLESTEROL 16 mg/dL
[2022-12-16 15:12] LABS: ESTIMATED AVERAGE GLUCOSE 298 mg/dL (70-100)
== END 2022-12-16 10:53 | disposition home or self-care (01) ==
LOC: LAB 10:52
PROVIDERS: ATTEND Nurse Practitioner Family
DX: E11.9 Type 2 diabetes mellitus without complications (principal)
CPT/HCPCS: 36415; 80048; 80061; 81599; 82043; 82570; 83036; 83721

== ENCOUNTER 2022-12-31 11:15 | Emergency (ER) | payer MEDICARE ==
[2022-12-31 11:45] VITALS: BP 129/86
--- NOTE | 2022-12-31 12:00 | XRAY Report ---
PROCEDURE: Shoulder 3 View LT INDICATIONS: fall TECHNIQUE: 3 views of the shoulder were acquired. COMPARISON: None. FINDINGS: Bones: No fractures or dislocations. No suspicious bony lesions. Visualized ribs appear intact. Soft tissues: No suspicious soft tissue calcifications. IMPRESSION: No visualized acute fracture or dislocation. However, occult injury cannot be excluded. Recommend short interval imaging follow-up in 7-10 days as clinically indicated for additional evalua tion. Reviewed by: Kate Cody MD on 12/31/2022 11:59 AM PDT Approved by: Kate Cody MD on 12/31/2022 11:59 AM PDT Station ID: [id number]
--- NOTE | 2022-12-31 12:58 | ED Physician Documentation ---
PD HPI UPPER EXT INJURY - Stated complaint Stated Complaint: LT SHOULDER NUMB - Chief complaint Chief Complaint: Ext Problem - History obtained from History obtained from: Patient - History of Present Illness Location: Left, Shoulder Type of injury: Fall, Blunt / blow (she states she had fall directly to left shoulder months ago and has had some pains with lifting/motion at times. 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 HEENT: None Psych: Depression, Anxiety Musculoskeletal: Other Derm: None - Past Surgical History Past Surgical History: Yes Ortho: Carpal Tunnel surgery - Present Medications Home Medications: Ambulatory Orders Medication Instructions Recorded Confirmed HYDROcod/ACETAM 5/325 [[place] 5/325] 1 - 2 tab PO Q6H PRN #15 tablet 04/03/22 Insulin Detemir [Levemir] 10 unit SQ HS 04/03/22 04/03/22 glipiZIDE [Glipizide] 10 mg PO BID 04/03/22 04/03/22 metFORMIN [Glucophage] 1,000 mg PO BID 04/03/22 04/03/22 HYDROcod/ACETAM 5/325 [[place] 5/325] 1 ea PO Q6H PRN #18 tablet 12/31/22 Meloxicam [Mobic] 7.5 mg PO BID 10 Days #20 tablet 12/31/22 methocarbamoL [Robaxin] 500 mg PO BID #20 tablet 12/31/22 - Allergies Allergies/Adverse Reactions: Allergies Allergy/AdvReac Type Severity Reaction Status Date / Time aspirin Allergy Unknown Verified 12/31/22 11:45 lavender (Lavandula Allergy Hives Verified 12/31/22 11:45 angustifolia) - Social History Does the pt smoke?: No Smoking Status: Never smoker Does the pt drink ETOH?: No Does the pt have substance abuse?: No - Immunizations Immunizations are current?: Yes - POLST Patient has POLST: No PD ED PE NORMAL - Vitals Vital signs reviewed: Yes - General General: Alert and oriented X 3, Well developed/nourished, Other (appears uncomfortable and is guarding left arm held to her side to reduce motion. Unable to extend nor lift more than 45 degrees. ) - Neck Neck: Supple, no meningeal sign, No bony TTP - Cardiac Cardiac: RRR, No murmur - Respiratory Respiratory: Clear bilaterally - Derm Derm: Normal color, Warm and dry, No rash - Extremities Extremities: Other (tender in suprascapular area and posterior shoulder. Movement against resistance has worst pain with extension, abduction and internal rotation. ) Results - Vitals Vitals: Vital Signs - 24 hr 12/31/22 13:18 Respiratory 16 Rate Oxygen O2 Source Room air - Rads (name of study) left shoulder Relevant Findings:: Prelim report reviewed, EMP independent interpretation of test (no fracture nor dislocaiton. ), See rad report PD Medical Decision Making - ED course Complexity details: reviewed results (xray left shoulder is normal. ), considered differential (she states she had fall directly to left shoulder months ago and has had some pains with lifting/motion at times. Very consistent pain the past week without new injury. ) ED course: she has pain posterior shoulder and suprascapular area with ROM of the arm. Has owrst pain with extension, adduction and internal rotation of the shoulder c/w partial rotator cuff involvement. Departure - Departure Disposition: 01 Home, Self Care Clinical Impression: Left shoulder tendonitis Condition: Stable Record reviewed to determine appropriate education?: Yes Instructions: ED Tendinitis Rotator Cuff Follow-Up: Orthopedic Care [Provider Group] Prescriptions: Meloxicam [Mobic] 7.5 mg PO BID 10 Days #20 tablet HYDROcod/ACETAM 5/325 [[place] 5/325] 1 ea PO Q6H PRN #18 tablet PRN Reason: Pain methocarbamoL [Robaxin] 500 mg PO BID #20 tablet Comments: Use the sling to remove rest the shoulder and decreased range of motion. This will allow for pressure and use off of the rotator cuff muscles. However you want to gently do range of motion of the shoulder 3-4 times daily so it does not get stiff and. In particular avoid lifting, push pull, overhead reaching with the arm for the next week or 2. We can try a different anti-inflammatory. I prescribed meloxicam twice daily with food for the next 7 to 10 days. Muscle relaxant such as methocarbamol may help with some of the shoulder girdle muscle as well. To that add Tylenol every 4-6 hours if needed for pain or hydrocodone/acetaminophen if needed for worse pain. I would anticipate improvement in this over the next several days to a week. However would be good to follow-up with orthopedics to decide next treatments from there since this has been a little bit longer-term issue with a flareup now. Call for an appointment for next week. I sent your prescriptions to [facility] pharmacy. I am prescribing a short course of narcotic pain medication for you. These are potentially dangerous and addictive medications that should be used carefully. These medications may constipate you. Take an gyps-kin-hkwpipw stool softener such as docusate twice daily with plenty of water while taking these medications. If you go 24 hours without a bowel movement, take tanv-sfb-zdeoipd MiraLAX, per package instructions. Do not drink or drive while taking these medications. If you received narcotic or sedating medications while in the emergency department do not drive for 24 hours. Store this medication in a safe, secure place and out of reach of children. It is a violation of federal law to give or sell this medication to another person or to use in a manner other than prescribed. The ED will not refill narcotic prescriptions, including prescriptions lost or stolen. You can dispose of unwanted medications at the [facility] office or at several pharmacies such as [facility]. Discharge Date/Time: 12/31/22 13:49
[2022-12-31] MEDS ORDERED: ACETAMINOPHEN 325 MG TABLET PO STA (13:23)
[2022-12-31] MEDS ORDERED: NAPROXEN 250 MG TABLET PO STA (13:23)
[2022-12-31] MEDS ORDERED: methocarbamoL 500 MG TABLET PO STA (13:23)
== END 2022-12-31 13:49 | disposition home or self-care (01) ==
LOC: ED 11:15
DX: M75.82 Other shoulder lesions, left shoulder (principal)
CPT/HCPCS: 73030; 99283; A9270

== ENCOUNTER 2023-01-29 16:06 | Emergency (ER) | payer MEDICARE, MEDICAID ==
[2023-01-29] MEDS ORDERED: SODIUM CHLORIDE 0.9% 1,000 ML IV STA ×2 (16:34)
--- NOTE | 2023-01-29 16:45 | ED Physician Documentation ---
History of Present Illness - Stated complaint Stated Complaint: FEMALE GI - Chief complaint Chief Complaint: Wound - History obtained from History obtained from: Patient - History of Present Illness Timing: Today Pain level max: 0 Pain level now: 0 - Additonal information Additional information: Patient is a 37-year-old female presents the emergency department complaining of a rash in her genital area. She states that this has been ongoing for the past several weeks. She states that she tried "a rash cream and a rash pill" she states no relief. She does not know what the cream or the pills were. She states they were not prescribed. No fevers. No chills. No vaginal bleeding or discharge. Worse with palpation and movement, nothing makes it better. 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 HEENT: None Psych: Depression, Anxiety Musculoskeletal: Other Derm: None - Past Surgical History Past Surgical History: Yes Ortho: Carpal Tunnel surgery - Present Medications Home Medications: Ambulatory Orders Medication Instructions Recorded Confirmed HYDROcod/ACETAM 5/325 [Lula 5/325] 1 - 2 tab PO Q6H PRN #15 tablet 04/03/22 Insulin Detemir [Levemir] 10 unit SQ HS 04/03/22 04/03/22 glipiZIDE [Glipizide] 10 mg PO BID 04/03/22 04/03/22 metFORMIN [Glucophage] 1,000 mg PO BID 04/03/22 04/03/22 HYDROcod/ACETAM 5/325 [Lula 5/325] 1 ea PO Q6H PRN #18 tablet 12/31/22 Meloxicam [Mobic] 7.5 mg PO BID 10 Days #20 tablet 12/31/22 methocarbamoL [Robaxin] 500 mg PO BID #20 tablet 12/31/22 Sulfamethox/Trimeth 800/160 1 each PO BID #20 tablet 01/29/23 [Bactrim Ds 800/160] cephALEXin [Keflex] 500 mg PO Q6H #40 cap 01/29/23 - Allergies Allergies/Adverse Reactions: Allergies Allergy/AdvReac Type Severity Reaction Status Date / Time aspirin Allergy Unknown Verified 01/29/23 16:17 lavender (Lavandula Allergy Hives Verified 01/29/23 16:17 angustifolia) - Social History Does the pt smoke?: No Smoking Status: Never smoker Does the pt drink ETOH?: No Does the pt have substance abuse?: No - Immunizations Immunizations are current?: Yes - POLST Patient has POLST: No PD ED PE NORMAL - Vitals Vital signs reviewed: Yes - General General: Alert and oriented X 3 - HEENT HEENT: Moist mucous membranes - Neck Neck: Supple, no meningeal sign - Cardiac Cardiac: RRR, Strong equal pulses - Respiratory Respiratory: No respiratory distress, Clear bilaterally - Abdomen Abdomen: Soft, Non tender, Non distended - Female Female : Other (swelling, induration, erythema to the mons pubis. no crepitus or fluctuance) - Back Back: No spinal TTP - Derm Derm: Warm and dry - Extremities Extremities: No edema, No calf tenderness / cord - Neuro Neuro: Alert and oriented X 3 - Psych Psych: Normal mood, Normal affect Results - Vitals Vitals: Vital Signs - 24 hr 01/29/23 01/29/23 01/29/23 16:13 16:28 18:24 Temperature 37.1 C Heart Rate 128 H 119 H 118 H Respiratory 16 23 15 Rate Blood Pressure 145/95 H 144/94 H 132/103 H O2 Saturation 97 94 97 01/29/23 01/29/23 20:04 21:42 Temperature 37.4 C Heart Rate 107 H 120 H Respiratory 18 18 Rate Blood Pressure 145/110 H 147/92 H O2 Saturation 98 97 Oxygen O2 Source Room air - Labs Labs: Laboratory Tests 01/29/23 01/29/23 01/29/23 16:21 16:42 16:42 WBC 17.4 H RBC 5.59 H Hgb 15.6 Hct 45.2 MCV 80.9 L MCH 27.9 MCHC 34.5 RDW 11.7 L Plt Count 273 MPV 10.5 Neut # (Auto) 13.7 H Lymph # (Auto) 2.3 Grand # (Auto) 1.3 H Eos # (Auto) 0.0 Baso # (Auto) 0.1 Absolute Nucleated RBC 0.00 Nucleated RBC % 0.0 Sodium 134 L Potassium 3.8 Chloride 100 L Carbon Dioxide 20 L Anion Gap 14.0 H BUN 9 Creatinine 0.5 Estimated GFR (MDRD) 140 Glucose 395 H POC Whole Bld Glucose 377 H Lactic Acid Calcium 9.4 Total Bilirubin 1.1 H AST 23 ALT 55 Alkaline Phosphatase 81 Total Protein 8.7 H Albumin 4.0 Globulin 4.7 H Albumin/Globulin Ratio 0.9 L Serum HCG, Qual Urine Color Urine Clarity Urine pH Ur Specific [place] Urine Protein Urine Glucose (UA) Urine Ketones Urine Occult Blood Urine Nitrite Urine Bilirubin Urine Urobilinogen Ur Leukocyte Esterase Ur Microscopic Review Urine Culture Comments 01/29/23 01/29/23 01/29/23 16:42 16:42 17:26 WBC RBC Hgb Hct MCV MCH MCHC RDW Plt Count MPV Neut # (Auto) Lymph # (Auto) Grand # (Auto) Eos # (Auto) Baso # (Auto) Absolute Nucleated RBC Nucleated RBC % Sodium Potassium Chloride Carbon Dioxide Anion Gap BUN Creatinine Estimated GFR (MDRD) Glucose POC Whole Bld Glucose Lactic Acid 1.3 Calcium Total Bilirubin AST ALT Alkaline Phosphatase Total Protein Albumin Globulin Albumin/Globulin Ratio Serum HCG, Qual NEGATIVE Urine Color YELLOW Urine Clarity CLEAR Urine pH 6.0 Ur Specific [place] 1.015 Urine Protein NEGATIVE Urine Glucose (UA) >=1000 H Urine Ketones 40 H Urine Occult Blood NEGATIVE Urine Nitrite NEGATIVE Urine Bilirubin NEGATIVE Urine Urobilinogen 0.2 (NORMAL) Ur Leukocyte Esterase NEGATIVE Ur Microscopic Review NOT INDICATED Urine Culture Comments NOT INDICATED - Rads (name of study) CT abd/pelvis Relevant Findings:: Final report received, See rad report PD Medical Decision Making - ED course Complexity details: reviewed results, re-evaluated patient, considered differential, d/w patient ED course: 37-year-old female with a significant cellulitis to the mons pubis. CT scan performed, does not show any evidence of drainable abscess. Given IV Rocephin, IV vancomycin. We will place on oral antibiotics and have close follow-up. Patient is well-appearing, nontoxic. Afebrile. No evidence of necrotizing fasciitis, or gangrene. No evidence of sepsis. CBC does show a leukocytosis, lactate is normal. Blood culture sent. Patient counseled regarding signs and symptoms for which I believe and urgent re-evaluation would be necessary. Patient with good understanding of and agreement to plan and is comfortable going home at this time This document was made in part using voice recognition software. While efforts are made to proofread this document, sound alike and grammatical errors may occur. EXAM: [id number] CT/ABPEW ([id number]) PROCEDURE: ABDOMEN/PELVIS W INDICATIONS: mons pubis swelling, erythema CONTRAST: 100ml omni 300 TECHNIQUE: After the administration of IV contrast, 5 mm thick sections acquired from the diaphragms to the symphysis. 5 mm thick coronal and sagittal reformats were acquired. For radiation dose reduction, the following was used: automated exposure control, adjustment of mA and/or kV according to patient size. COMPARISON: Correlation is made with prior lumbar plain films, 03/01/2018. FINDINGS: Image quality: Excellent. Lung bases and heart: Unremarkable. Liver: Diffuse fatty liver infiltration can be seen. The liver demonstrates normal size and demonstrates no suspicious lesions. Gallbladder and biliary tree: Several gallstones are seen. No additional CT findings of cholecystitis are seen. No gina biliary dilatation is seen. Spleen: No splenomegaly. Pancreas: No pancreatic ductal dilation. Adrenals: No adrenal nodule. Kidneys and ureters: No hydronephrosis. No renal cystic lesion which requires follow up. No solid mass. Bowel and peritoneum: No bowel distension. No pathologic free fluid. Lymph nodes: No central or retroperitoneal adenopathy. Vessels: No infrarenal aortic aneurysm. PELVIS Reproductive organs: The uterus demonstrates an unremarkable appearance for age. No adnexal masses are seen. Bladder: No abnormal wall thickening, accounting for underdistension. Pelvic lymph nodes: Borderline prominent inguinal lymph nodes are seen on both sides. Bones: L5-S1 postoperative hardware is seen, without findings of failure or loosening. Mild grade 1 L5-S1 anterolisthesis is seen. Focal soft tissue swelling can be seen involving the left mons pubis, with generalized inflammatory change seen within the subcutaneous tissues on both sides of the anterior pelvis. No drainable abscess is seen. No soft tissue gas is seen. IMPRESSION: Focal soft tissue swelling seen involving the left mons pubis, yet without a drainable abscess. Regional cellulitis can be seen. Borderline prominent inguinal lymph nodes are seen on both sides. Numerous gallstones are seen, without additional sonographic signs of cholecystitis. Additional findings: Fatty liver infiltration L5-S1 postoperative hardware Mild grade 1 L5-S1 anterolisthesis. Departure - Departure Disposition: 01 Home, Self Care Clinical Impression: Cellulitis Qualifiers: Site of cellulitis: trunk Site of cellulitis of trunk: abdominal wall Qualified Code(s): L03.311 - Cellulitis of abdominal wall Condition: Good Instructions: ED Infec Skin Cellulitis Follow-Up: your,doctor in 3 days [Other] Prescriptions: Sulfamethox/Trimeth 800/160 [Bactrim Ds 800/160] 1 each PO BID #20 tablet cephALEXin [Keflex] 500 mg PO Q6H #40 cap Comments: Take all antibiotics until gone. Please return here in 2 to 3 days for a wound check if you cannot see your doctor. Your prescriptions were sent to [facility] in [place]. Return sooner if you worsen. Discharge Date/Time: 01/29/23 21:44
[2023-01-29 16:51] LABS: BASOPHILS # (AUTO) 0.1 10^3/uL (0.0-0.1); BASOPHILS % (AUTO) 0.5 %; EOSINOPHILS % (AUTO) 0.2 %; HCT - HEMATOCRIT 45.2 % (37.0-47.0); HGB - HEMOGLOBIN 15.6 g/dL (12.0-16.0); LYMPHOCYTES # (AUTO) 2.3 10^3/uL (1.5-3.5); LYMPHOCYTES % (AUTO) 12.9 %; MEAN CORPUSCULAR HEMOGLOBIN 27.9 pg (27.0-31.0); MEAN CORPUSCULAR HGB CONC 34.5 g/dL (32.0-36.0); MEAN CORPUSCULAR VOLUME 80.9 fL (81.0-99.0); MEAN PLATELET VOLUME 10.5 fL (7.9-10.8); MONOCYTES # (AUTO) 1.3 10^3/uL (0.0-1.0); MONOCYTES % (AUTO) 7.3 %; NEUTROPHILS # (AUTO) 13.7 10^3/uL (1.5-6.6); NEUTROPHILS % (AUTO) 78.6 %; PLT - PLATELET COUNT 273 10^3/uL (130-450); RED BLOOD COUNT 5.59 10^6/uL (4.20-5.40); RED CELL DISTRIBUTION WIDTH 11.7 % (12.0-15.0); WHITE BLOOD COUNT 17.4 x10^3/uL (4.8-10.8)
[2023-01-29 17:01] LABS: ALBUMIN/GLOBULIN RATIO 0.9 (1.0-2.2); BILIRUBIN,TOTAL 1.1 mg/dL (0.2-1.0); CALCIUM 9.4 mg/dL (8.5-10.3); CREATININE 0.5 mg/dL (0.4-1.0); POTASSIUM 3.8 mmol/L (3.5-5.0); TOTAL PROTEIN 8.7 g/dL (6.7-8.2)
[2023-01-29] MEDS ORDERED: iohexoL-300 100 ML VIAL ONE (17:02)
[2023-01-29 17:27] LABS: HCG,QUALITATIVE BLOOD NEGATIVE
[2023-01-29 17:36] LABS: BILIRUBIN,URINE NEGATIVE (NEGATIVE); GLUCOSE, URINE (UA) >=1000 mg/dL (NEGATIVE); KETONES,URINE (UA) 40 mg/dL (NEGATIVE); LEUKOCYTE ESTERASE, URINE NEGATIVE (NEGATIVE); NITRITE,URINE NEGATIVE (NEGATIVE); OCCULT BLOOD,URINE NEGATIVE (NEGATIVE); PROTEIN,URINE NEGATIVE (NEGATIVE); UROBILINOGEN,URINE 0.2 (NORMAL) E.U./dL (NORMAL)
[2023-01-29 17:38] LABS: CLARITY,URINE CLEAR (CLEAR)
[2023-01-29] MEDS ORDERED: iohexoL-300 100 ML VIAL IVP ONE (17:50)
--- NOTE | 2023-01-29 18:08 | CT Report ---
PROCEDURE: ABDOMEN/PELVIS W INDICATIONS: mons pubis swelling, erythema CONTRAST: 100ml omni 300 TECHNIQUE: After the administration of IV contrast, 5 mm thick sections acquired from the diaphragms to the symp hysis. 5 mm thick coronal and sagittal reformats were acquired. For radiation dose reduction, the f ollowing was used: automated exposure control, adjustment of mA and/or kV according to patient size. COMPARISON: Correlation is made with prior lumbar plain films, 03/01/2018. FINDINGS: Image quality: Excellent. Lung bases and heart: Unremarkable. Liver: Diffuse fatty liver infiltration can be seen. The liver demonstrates normal size and demonstra ji no suspicious lesions. Gallbladder and biliary tree: Several gallstones are seen. No additional CT findings of cholecystitis are seen. No gina biliary dilatation is seen. Spleen: No splenomegaly. Pancreas: No pancreatic ductal dilation. Adrenals: No adrenal nodule. Kidneys and ureters: No hydronephrosis. No renal cystic lesion which requires follow up. No solid mas s. Bowel and peritoneum: No bowel distension. No pathologic free fluid. Lymph nodes: No central or retroperitoneal adenopathy. Vessels: No infrarenal aortic aneurysm. PELVIS Reproductive organs: The uterus demonstrates an unremarkable appearance for age. No adnexal masses ar e seen. Bladder: No abnormal wall thickening, accounting for underdistension. Pelvic lymph nodes: Borderline prominent inguinal lymph nodes are seen on both sides. Bones: L5-S1 postoperative hardware is seen, without findings of failure or loosening. Mild grade 1 L 5-S1 anterolisthesis is seen. Focal soft tissue swelling can be seen involving the left mons pubis, with generalized inflammatory c hange seen within the subcutaneous tissues on both sides of the anterior pelvis. No drainable abscess is seen. No soft tissue gas is seen. IMPRESSION: Focal soft tissue swelling seen involving the left mons pubis, yet without a drainable abscess. Regional cellulitis can be seen. Borderline prominent inguinal lymph nodes are seen on both sides. Numerous gallstones are seen, without additional sonographic signs of cholecystitis. Additional findings: Fatty liver infiltration L5-S1 postoperative hardware Mild grade 1 L5-S1 anterolisthesis. Reviewed by: Isra Simon MD on 01/29/2023 5:07 PM NATACHA Approved by: Isra Simon MD on 01/29/2023 5:07 PM NATACHA Station ID: [id number]
[2023-01-29] MEDS ORDERED: cefTRIAXone 1 GM VIAL IVP STA (18:11)
[2023-01-29] MEDS ORDERED: VANCOMYCIN INJ 1 GM in SODIUM CHLORIDE 0.9% 500 ML IV STA (18:11)
[2023-01-29] MEDS ORDERED: VANCOMYCIN INJ 1 GM, VANCOMYCIN INJ 500 MG in SODIUM CHLORIDE 0.9% 500 ML IV STA (18:21)
[2023-01-29 21:43] VITALS: BP 147/92
== END 2023-01-29 21:44 | disposition home or self-care (01) ==
LOC: ED 16:06
DX: L03.311 Cellulitis of abdominal wall (principal)
CPT/HCPCS: 36415; 74177; 80053; 81003; 83605; 84703; 85025; 87040; 96365; 96366; 96375; 99283; 99284; J3370; Q9967; 81001; 87086

== ENCOUNTER 2023-04-30 15:50 | Emergency (ER) | payer MEDICAID, MEDICARE ==
[2023-04-30 16:04] VITALS: BP 150/97
--- NOTE | 2023-04-30 16:11 | ED Physician Documentation ---
PD HPI LOWER EXT INJURY - Stated complaint Stated Complaint: GLF, LT ANKLE PX - Chief complaint Chief Complaint: Ext Problem - History obtained from History obtained from: Patient - History of Present Illness PD HPI LOW EXT INJURY LOCATION: Left, Ankle Type of injury: Twist Timing - onset: How many weeks ago (1 1/2) Timing - duration: Weeks Worsened by: Moving, Palpating Associated symptoms: Swelling (she thought the ankle would be better by this amount of time. Still with swelling and pain on use through the day.). 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 HEENT: None Psych: Depression, Anxiety Musculoskeletal: Other Derm: None - Past Surgical History Past Surgical History: Yes Ortho: Carpal Tunnel surgery - Present Medications Home Medications: Ambulatory Orders Medication Instructions Recorded Confirmed Insulin Detemir [Levemir] 10 unit SQ HS 04/03/22 04/30/23 glipiZIDE [Glipizide] 10 mg PO BID 04/03/22 04/30/23 metFORMIN [Glucophage] 1,000 mg PO BID 04/03/22 04/30/23 - Allergies Allergies/Adverse Reactions: Allergies Allergy/AdvReac Type Severity Reaction Status Date / Time aspirin Allergy Unknown Verified 01/29/23 16:17 lavender (Lavandula Allergy Hives Verified 01/29/23 16:17 angustifolia) - Social History Does the pt smoke?: No Smoking Status: Never smoker Does the pt drink ETOH?: No Does the pt have substance abuse?: No - Immunizations Immunizations are current?: Yes - POLST Patient has POLST: No PD ED PE NORMAL - Vitals Vital signs reviewed: Yes - General General: Alert and oriented X 3, Well developed/nourished - Derm Derm: Normal color, Warm and dry - Extremities Extremities: Other (left ankle tender over lateral malleolus and anterior to that. No gross deofmity. Medially not tender. Achilles firm and intact. ) - Neuro Neuro: Alert and oriented X 3, No motor deficit, No sensory deficit Results - Vitals Vitals: Oxygen O2 Source Room air - Rads (name of study) ankle xray Relevant Findings:: Prelim report reviewed, EMP independent interpretation of test (no fractures) PD Medical Decision Making - ED course Complexity details: reviewed results (xray without fractures), considered differential, d/w patient Departure - Departure Disposition: 01 Home, Self Care Clinical Impression: Ankle sprain Qualifiers: Encounter type: initial encounter Involved ligament of ankle: unspecified ligament Laterality: left Qualified Code(s): S93.402A - Sprain of unspecified ligament of left ankle, initial encounter Condition: Stable Record reviewed to determine appropriate education?: Yes Instructions: ED Sprain Ankle W X Ray Comments: Your x-ray appears normal without any fractures. Obviously your ankle is still injured and would be of the ligaments and muscles (ankle sprain). For this use the strap on ankle brace to support side to side stability while this is healing. I would use the brace when up and around for the next 2 to 3 weeks. It does not have to be on all the time when rested. Weightbearing is okay for healing. If its hurting too much to begin with, crutches and partial to no weightbearing is okay but progress weightbearing as tolerated. Ice elevate and rest it often today and tomorrow for swelling. Ibuprofen or naproxen 2 to 3 tablets 2-3 times daily for pain. Add Tylenol every 4-6 hours if needed. I would anticipate improvement over the next several days to week but likely 2 to 3 weeks for for full improvement. Recheck if not improving in that timeframe. Forms: PCP List Discharge Date/Time: 04/30/23 16:54
--- OUTSIDE RECORDS SUMMARY | 2023-04-30 16:17 | EXTERNAL MEDICAL SUMMARY RPT | Continuity of Care Document ---
Author Name Unknown Address [address] [place] [address] Phone Organization [facility] Address [address] [place] [address] Phone Problems date description facility 2023-03-16 15:57 Unspecified subluxat ion of left shoulder joint, initial [facility] 2023-03-17 08:14 Unspecified subluxat ion of left shoulder joint, initial [facility] Results/Labs test date facility value unit notes
--- NOTE | 2023-04-30 17:22 | XRAY Report ---
PROCEDURE: Ankle 3 View LT INDICATIONS: ankle injury about a week ago, still hurts TECHNIQUE: 3 views of the ankle were acquired. COMPARISON: None. FINDINGS: Bones: No fractures or dislocations. Ankle mortise is normally aligned. No suspicious bony lesions . Soft tissues: No tibiotalar joint effusion. Achilles tendon appears normal. IMPRESSION: Unremarkable left ankle radiographs Reviewed by: Anjum Escudero MD on 04/30/2023 4:21 PM AKDT Approved by: Anjum Escudero MD on 04/30/2023 4:21 PM AKDT Station ID: [id number]
== END 2023-04-30 16:54 | disposition home or self-care (01) ==
LOC: ED 15:50
DX: S93.402A Sprain of unspecified ligament of left ankle, initial encounter (principal); W18.30XA Fall on same level, unspecified, initial encounter
CPT/HCPCS: 99283

== ENCOUNTER 2023-09-23 13:56 | Emergency (ER) | payer MEDICARE, MEDICAID ==
--- NOTE | 2023-09-23 14:34 | XRAY Report ---
PROCEDURE: Chest 1V INDICATIONS: cough TECHNIQUE: One view of the chest was acquired. COMPARISON: None. FINDINGS: Surgical changes and devices: None. Lungs and pleura: No pleural effusions or pneumothorax. Lungs are clear. Mediastinum: Mediastinal contours appear normal. Heart size is normal. Bones and chest wall: No suspicious bony lesions. Overlying soft tissues appear unremarkable. IMPRESSION: No acute cardiopulmonary disease process. Reviewed by: Brittany Corbett MD, PhD on 09/23/2023 2:33 PM PST Approved by: Brittany Corbett MD, PhD on 09/23/2023 2:33 PM PST Station ID: [id number]
--- NOTE | 2023-09-23 16:26 | ED Physician Documentation ---
PD HPI URI - Stated complaint Stated Complaint: CP/EAR PX/COUGH - Chief complaint Chief Complaint: Resp - Additional information Additional information: 38-year-old female presents with a week of cough, nasal congestion and had bilateral ear pain. No fever or chills. She took a home COVID test which is negative. She states her daughter was sick for several weeks with similar symptoms though is now doing better but she is afraid she caught what ever her daughter had. She was concerned that she may be developing pneumonia given the increase in cough. Cough is occasionally productive, no wheezing. She has tried Mucinex and other [id number] medication without relief. Review of Systems Constitutional: reports: Reviewed and negative Eyes: reports: Reviewed and negative Ears: reports: Ear pain. denies: Drainage/discharge, Tinnitus/ringing, Foreign body Nose: reports: Rhinorrhea / runny nose. denies: Congestion, Sinus pressure / pain, Foreign Body Throat: reports: Reviewed and negative Cardiac: reports: Reviewed and negative Respiratory: reports: Cough. 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 Psych: Depression, Anxiety Musculoskeletal: Other Derm: None - Past Surgical History Past Surgical History: Yes Ortho: Carpal Tunnel surgery - Present Medications Home Medications: Ambulatory Orders Medication Instructions Recorded Confirmed Insulin Detemir [Levemir] 10 unit SQ HS 04/03/22 04/30/23 glipiZIDE [Glipizide] 10 mg PO BID 04/03/22 04/30/23 metFORMIN [Glucophage] 1,000 mg PO BID 04/03/22 04/30/23 Benzonatate [Tessalon] 100 mg PO TID #30 cap 09/23/23 - Allergies Allergies/Adverse Reactions: Allergies Allergy/AdvReac Type Severity Reaction Status Date / Time aspirin Allergy Unknown Verified 09/23/23 14:18 lavender (Lavandula Allergy Hives Verified 09/23/23 14:18 angustifolia) - Social History Does the pt smoke?: No Smoking Status: Never smoker Does the pt drink ETOH?: No Does the pt have substance abuse?: No - Immunizations Immunizations are current?: Yes - POLST Patient has POLST: No PD ED PE NORMAL - Vitals Vital signs reviewed: Yes - General General: Alert and oriented X 3, No acute distress, Well developed/nourished - HEENT HEENT: Atraumatic, PERRL, EOMI, Ears normal, Moist mucous membranes, Pharynx benign - Neck Neck: Supple, no meningeal sign, No JVD - Cardiac Cardiac: RRR, No murmur - Respiratory Respiratory: No respiratory distress, Clear bilaterally - Abdomen Abdomen: Normal bowel sounds, Non tender, Non distended Results - Vitals Vitals: Vital Signs - 24 hr 09/23/23 14:09 Temperature 36.5 C Heart Rate 95 Respiratory 17 Rate Blood Pressure 134/91 H O2 Saturation 99 Oxygen O2 Source Room air - Rads (name of study) No standard instances Relevant Findings:: Final report received PD Medical Decision Making - ED course Complexity details: reviewed results, re-evaluated patient, considered differential, d/w patient ED course: 38-year-old female presenting with 7 days of cough and congestion as described in HPI. Patient is well-appearing here on physical exam, no acute distress nontoxic and is suctioning well on room air. Her lungs are clear, TMs appear normal, her physical exam is otherwise unremarkable. Her chest x-ray is negative. Viral panel is pending but suspect this is a viral URI, and no indication for antibiotics at this time. Advised that it often takes longer than weeks for symptoms to improve and should continue supportive measures including Tylenol ibuprofen oral fluids plenty of rest modification, she can try decongestant at home. I discussed return precautions however if worsening symptoms or follow-up with PCP if no improvement in the next 5 days. Departure - Departure Disposition: 01 Home, Self Care Clinical Impression: Upper respiratory tract infection Qualifiers: URI type: unspecified viral URI Qualified Code(s): J06.9 - Acute upper respiratory infection, unspecified Condition: Good Instructions: ED Viral Syndrome Prescriptions: Benzonatate [Tessalon] 100 mg PO TID #30 cap Comments: Your chest x-ray and physical exam are reassuring. It does not appear that this is pneumonia or an ear infection at this time. It is not uncommon for cough and cold symptoms to last longer than a week, somewhat times upwards of 2 to 3 weeks. Generally antibiotics are not indicated though if you have worsening symptoms over the course the next week or no improvement within a week, please follow-up with your primary doctor. Try to stay well-hydrated, get plenty of rest and I have given you another cough medication you can try if desired. Otherwise medication is [id number]. Forms: PCP List
[2023-09-23 16:52] VITALS: BP 136/104; O2SAT 96
[2023-09-23 18:16] LABS: B. PARAPERTUSSIS- RESP PCR PAN NOT DETECTED; B. PERTUSSIS- RESP PCR PANEL NOT DETECTED; C. PNEUMONIAE- RESP PCR PANEL NOT DETECTED; CORONAVIRUS 229E-RESP PCR NOT DETECTED; CORONAVIRUS HKU1-RESP PCR NOT DETECTED; CORONAVIRUS NL63-RESP PCR NOT DETECTED; CORONAVIRUS OC43-RESP PCR NOT DETECTED; HUMAN METAPNEUMOVIRUS NOT DETECTED; INFLUENZA A- RESP PCR PANEL NOT DETECTED; INFLUENZA B - RESP PCR PANEL NOT DETECTED; M. PNEUMONIAE- RESP PCR PANEL NOT DETECTED; PARAINFLUENZA VIRUS 1 NOT DETECTED; PARAINFLUENZA VIRUS 2 NOT DETECTED; PARAINFLUENZA VIRUS 3 NOT DETECTED; PARAINFLUENZA VIRUS 4 NOT DETECTED; RHINOVIRUS/ENTEROVIRUS DETECTED; RSV- RESP PCR PANEL NOT DETECTED; SARS-CoV-2 -RESP PCR PANEL NOT DETECTED
== END 2023-09-23 16:49 | disposition home or self-care (01) ==
LOC: ED 13:56
DX: J06.9 Acute upper respiratory infection, unspecified (principal)
CPT/HCPCS: 87633; 99283; 99284